=== PATIENT | female | born 1960 | race Caucasian/White ===

== ENCOUNTER 2016-09-29 15:17 | Outpatient (CLI) | payer OTHER ==
--- NOTE | 2016-09-29 16:06 | DIAGNOSTIC IMAGING REPORT ---
PROCEDURE: XR WRIST MIN 3 VIEWS - RIGHT INDICATION: PAIN TECHNIQUE: Five views of the right wrist. COMPARISON: None. FINDINGS: Normal mineralization. Nondisplaced, transversely oriented fracture of the distal radius through the base of the radial styloid. Alignment is maintained. No other fractures. Incidental note of negative ulnar variance (chronic). Moderate volar soft tissue swelling. No radiodense foreign bodies. IMPRESSION: 1. Nondisplaced radial styloid fracture. 2. 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 3. Findings called to Madalyn Tillman.
== END 2016-09-29 23:00 ==
LOC: XR SRH 15:17
DX: S52.514A Nondisplaced fracture of right radial styloid process, initial encounter for closed fracture (principal)